=== PATIENT | female | born 1990 | race Two or more races ===

== ENCOUNTER 2023-03-23 18:06 | Emergency (ER) | payer MEDICAID, OTHER ==
[~2023-03-23] VITALS: Ht 162.6 cm; Wt 104.5 kg
[2023-03-23 18:14] VITALS: BP 138/82; PULSE 76; RESP 16; TEMP 98
[2023-03-23] MEDS ORDERED: IBUP-1554 PO (18:33)
[2023-03-23] MEDS ORDERED: PENI500T2 PO (18:33)
[2023-03-23] MEDS ORDERED: HYDR-4723 PO (18:33)
== END 2023-03-23 19:43 | disposition home or self-care (01) ==
LOC: EMS 18:09
DX: K04.7 Periapical abscess without sinus (principal); F41.9 Anxiety disorder, unspecified; E11.9 Type 2 diabetes mellitus without complications; F17.210 Nicotine dependence, cigarettes, uncomplicated
CPT/HCPCS: 82962; 99283